=== PATIENT | female | born 1980 | race Caucasian/White ===

== ENCOUNTER 2019-06-04 11:15 | Emergency (ER) | payer SELFPAY ==
[2019-06-04 11:16] VITALS: BP 120/73; PULSE 80; RESP 16; TEMP 36.1; O2SAT 98; BMI 31.8
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
[2019-06-04 12:24] LABS: Absolute Lymphocyte Count 2.51 X10^3/uL (0.83-4.51); Absolute Neutrophil Count 6.2 X10^3/uL (2.0-7.7); Basophil# 0.03 X10^3/uL; Basophil% 0.3 % (0-1); Eosinophil# 0.07 X10^3/uL; Eosinophils% 0.7 % (0-5); Hematocrit 39.6 % (37-47); Hemoglobin 13.5 g/dL (12.0-15.0); Lymphocyte # 2.51 X10^3/ul (4.0); Lymphocyte % 26.7 % (19-41); Mean Corp Hgb Conc 34.1 g/dL (32-36); Mean Corpuscular Hgb 30.8 pg (27.0-32.0); Mean Corpuscular Volume 90.2 fL (81-99); Mean Platelet Vol. 10.2 fl (6.2-12.0); Monocyte# 0.58 X10^3/uL; Monocyte% 6.2 % (0-10); NRBC Flagged by Analyzer 0 % (0-5); Neutrophil # 6.16 X10^3/uL (2.7-7.7); Neutrophil % 65.6 % (47-70); Platelet Count 291 K/mm3 (150-450); RBC Distribution Width CV 13.4 % (11.6-14.6); RBC Distribution Width SD 44.8 fl (35.1-43.9); Red Blood Count 4.39 M/mm3 (4.2-5.4); White Blood Count 9.4 K/mm3 (4.4-11.0)
[2019-06-04] MEDS: 0.9% Normal Saline 1,000 ML 1000 ML IV (12:43)
[2019-06-04] MEDS: Ondansetron 4 MG/2 ML Vial IV (12:44)
[2019-06-04 12:45] LABS: ALB/GLOB Ratio 1.1 RATIO (0.9-2.4); AST(SGOT) 18 U/L (15-37); Alanine Aminotransfer ALT/SGPT 19 U/L (13-56); Albumin, Serum 3.3 g/dL (3.2-5.0); Alkaline Phosphatase 50 U/L (45-117); Anion Gap 5 (5-15); BUN 10 mg/dL (7-18); BUN/Creat Ratio 15.9 RATIO (10-20); Calcium,Total 7.9 mg/dL (8.5-10.1); Chloride 110 mmol/L (98-107); Creatinine, Serum 0.63 mg/dL (0.55-1.02); EST Glomerular Filtration Rate 113 mL/min (>60); Est Glom Filt Rate - Afr Amer 137 mL/min (>60); Estimated Creatinine Clearance 101.14 ml/min; Glucose 137 mg/dL (74-106); Lipase 120 U/L (73-393); Potassium 3.6 mmol/L (3.5-5.1); Protein, Total 6.3 g/dL (6.4-8.2); Sodium Level 139 mmol/L (136-145)
[2019-06-04] MEDS: Morphine 4 MG/ML Syringe IV (12:45)
--- NOTE | 2019-06-04 12:52 | ED.VIS.GEN ---
History of Present Illness Chief Complaint: Abd Pain Informant: Patient Onset: Weeks Narrative: Patient presents to the ED with reports of intermittent upper abdominal pain that been ongoing for several months. She states this is typically exacerbated with getting alcohol. She does report some associated nausea but no episodes of emesis. She describes as a severe aching sensation. She denies any emesis, diarrhea, constipation, urinary symptoms. She has no history of abdominal surgeries. Past Medical History - Allergies and Home Meds Allergies/Adverse Reactions: Allergies No Known Allergies Allergy (Verified 06/04/19 11:16) Primary Care Physician: Care Physician,No Primary [Primary Care Provider] - Smoking Status: Current every day smoker Review of Systems General: Denies: Chills, Fever, Sweats Eyes: Denies: Visual changes - bilaterally, Diplopia ENT: Denies: Rhinorrhea, Sore throat Cardiovascular: Denies: Chest pain, Palpitations Respiratory: Denies: Dyspnea, Cough, Dyspnea on exertion Gastrointestinal: Reports: Abdominal pain - Upper, Nausea. Denies: Vomiting, Diarrhea, Melena, Hematochezia Genitourinary: Denies: Dysuria, Hematuria, Frequency Musculoskeletal: Denies: Back pain, Extremity Pain Skin: Denies: Rash, Wounds Neurological: Denies: Headache, Weakness, Numbness Physical Exam Vital Signs/Narrative: Vital Signs Temp Pulse Resp BP Pulse Ox 06/04/19 11:16 97 F L 80 16 120/73 98 General: Well nourished, Well developed, No Acute Distress Head: Normocephalic, Atraumatic Eyes: Perrl, EOMI ENT: Moist mucous membranes, No rhinorrhea Neck: Supple, Nontender Cardiovascular: Regular rate, Regular rhythm, No murmurs Respiratory: No distress, CTA bilaterally, Chest nontender Abdomen: Soft, Nondistended, Normal bowel sounds, Tender - Epigastric. Negative for: Guarding, Rebound tenderness Back: Nontender, Normal Inspection Extremities: Nontender, No edema Skin: Normal color, No rash Neurological: Alert, Oriented x3, Cranial nerves II-XII grossly intact, Normal Strength, Normal Sensation Psychological: Normal affect, Normal Mood Diagnostic/Tx/Re-eval CBC, CMP, lipase are all unremarkable. - Medical Decision Making She presents to the ED with upper abdominal pain that has been intermittent for months. She is a chronic drinker. She reports some associated nausea. She appears well and nontoxic. She does have some upper abdominal tenderness to palpation with no guarding, rigidity, rebound tenderness. She was given IV fluids, morphine, and Zofran here for symptomatic relief. CBC, CMP, and lipase unremarkable. At this time, he is safe for the patient be discharged home. She will be provided with prescriptions for omeprazole and Carafate. She was instructed to follow-up with her PCP. She was educated on signs/symptoms to return to the ED. She is provided discharge instructions. She is agreeable to plan. Disposition: Home stable Impression: Gastritis ED Disposition - Plan for ED Patient: Disposition: Home or Assisted Living Diagnosis: Gastritis Instructions: GASTRITIS (Adult) Prescriptions: Sucralfate [Carafate] 1 gm PO 4X/DAY 3 Days #12 tab Prescription Printed Omeprazole [Prilosec] 20 mg PO BID #30 cap Prescription Printed Referrals: Care Physician,No Primary [Primary Care Provider] -
[2019-06-04 13:15] VITALS: BP 97/63; PULSE 80; RESP 16; O2SAT 96
== END 2019-06-04 14:07 | disposition home or self-care (01) ==
PROVIDERS: Emergency Provider Physician Assistant
DX: K29.70 Gastritis, unspecified, without bleeding (principal); F17.200 Nicotine dependence, unspecified, uncomplicated; Z79.899 Other long term (current) drug therapy
CPT/HCPCS: 80053; 83690; 85025; 96361; 96374; 96375; 99283; J7030; A4216; J2405

== ENCOUNTER 2019-06-06 13:18 | Emergency (ER) | payer SELFPAY ==
[2019-06-06 13:19] VITALS: BP 115/74; PULSE 58; RESP 16; TEMP 36.7; O2SAT 98; BMI 31.8
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
--- NOTE | 2019-06-06 15:23 | US_ITS ---
STUDY: ABDOMINAL ULTRASOUND - RIGHT UPPER QUADRANT REASON FOR VISIT: Female, 38 years old. Vertebral quadrant pain. TECHNIQUE: Ultrasound evaluation of the right upper quadrant was performed with real-time and static olvera-scale imaging. TECHNICAL QUALITY: Adequate. COMPARISON: None. FINDINGS: Liver: The liver measures 18.9 cm. There is normal echogenicity of the liver. The bile ducts are within normal limits. There is hepatic color flow. The direction of portal flow is hepatopetal. There is no demonstrated mass lesion. Gallbladder: Normal distended gallbladder. The gallbladder wall measures 4 mm. There is a positive sonographic Jose's sign. There is no pericholecystic fluid. There are multiple echogenic structures within the gallbladder, consistent with multiple gallstones. Common Bile Duct (C.B.D.): The common bile duct measures 5 mm. Pancreas: Normal size of the head, body and tail of the pancreas. There is normal echogenicity of the pancreas. There is no demonstrated pancreatic mass or cyst. Right Kidney: Normal size of the right kidney. The right kidney measures 12.0 cm. Normal renal cortex. The right cortex measures 1.2 cm. There is no demonstrated renal mass or cyst. There is no right hydronephrosis. US/Gallbladder IMPRESSION: Multiple gallstones. Gallbladder wall thickening. No biliary dilatation. Electronically Signed: William Mosqueda MD at 16:29 EDT , Service support ,
--- NOTE | 2019-06-06 15:23 | ED.DCSUM_ITS ---
- ER Visit Summary Date of Service: 06/06/19 Chief Complaint: Abdominal pain History of Present Illness: The patient is a 38 F who presents the emergency room with right upper quadrant pain. Patient states that this is been present for the past 1.5 months. She states that she got tired of it 2 days ago and came to the emergency department. She had a normal CBC CMP and lipase. It was felt at that time it was gastritis due to daily alcohol and ibuprofen use. She states that she has been taking her medications without relief. She states that food does not change her pain. She states laying on the right side makes it worse. She states that she has not had any fevers. She notes nausea without vo miting. Normal bowel movements. No urinary symptoms. Physical Examination: Afebrile vital signs are stable Gen: Well-nourished well-developed Head: Normocephalic atraumatic Eyes: Perrl EOMI ENT: TMs clear no rhinorrhea moist mucous membranes Neck: Supple no lymphadenopathy no JVD nontender CVS: Regular rate rhythm no murmurs normal S1-S2 Respiratory: No distress clear to auscultation bilaterally chest nontender Abdomen: Soft tender to palpation of the right upper quadrant with guarding nondistended normal bowel sounds no masses Back: Nontender Extremity: Nontender no edema Skin: Normal color no rash Neuro: alert orientated ?3 CN II-XII intact normal strength sensation reflexes gait cerebellar Psych: Normal affect normal mood Test Results: CBC CMP and lipase were negative. Gallbladder ultrasound shows cholelithiasis thickened gallbladder wall normal common bile duct and positive sonographic Jose sign without pericholecystic fluid. Emergency Department Course and Treatment: She received IV fluids morphine and Zofran. She is improved. I discussed the case with on-call surgeon Dr. Koch. Patient has an appointment tomorrow at 10:00 in his office to discuss cholecystectomy. Patient is comfortable with this plan. I will write for [place] and Zofran. Impression: 1. Cholelithiasis with biliary colic This note was generated with Evernote dictation software. It may contain incorrect words, spelling, and punctuation that were not noted in review of the chart prior to signing ED Disposition - Plan for ED Patient: Disposition: Home or Assisted Living Instructions: BILIARY COLIC with Gallstone (Confirmed) Prescriptions: Hydrocodone Bitart/Apap 5-325 [[place] 5MG-325MG] 1 tab PO Q6H PRN PRN 3 Days #12 tab PRN Reason: Pain Prescription Printed Ondansetron [Zofran Odt] 4 mg PO Q6H PRN PRN #10 tab PRN Reason: Nausea Prescription Printed Referrals: Natalio Koch MD [STAFF PHYSICIAN] - (You have an appointment at 1010 tomorrow. Please arrive early to fill out the necessary paperwork.)
[2019-06-06 15:30] VITALS: PULSE 68; RESP 16
[2019-06-06] MEDS: Ondansetron 4 MG/2 ML Vial IV (15:31)
[2019-06-06] MEDS: Morphine 4 MG/ML Syringe IV ×2 (15:31→17:22)
[2019-06-06 15:42] LABS: Absolute Lymphocyte Count 1.83 X10^3/uL (0.83-4.51); Absolute Neutrophil Count 6.5 X10^3/uL (2.0-7.7); Basophil# 0.03 X10^3/uL; Basophil% 0.3 % (0-1); Eosinophil# 0.07 X10^3/uL; Eosinophils% 0.8 % (0-5); Hematocrit 38.2 % (37-47); Hemoglobin 12.6 g/dL (12.0-15.0); Lymphocyte # 1.83 X10^3/ul (4.0); Lymphocyte % 20.5 % (19-41); Mean Corpuscular Hgb 30.1 pg (27.0-32.0); Mean Corpuscular Volume 91.2 fL (81-99); Mean Platelet Vol. 10.1 fl (6.2-12.0); Monocyte# 0.48 X10^3/uL; Monocyte% 5.4 % (0-10); NRBC Flagged by Analyzer 0 % (0-5); Neutrophil # 6.46 X10^3/uL (2.7-7.7); Neutrophil % 72.4 % (47-70); Platelet Count 280 K/mm3 (150-450); RBC Distribution Width CV 13.9 % (11.6-14.6); RBC Distribution Width SD 46.3 fl (35.1-43.9); Red Blood Count 4.19 M/mm3 (4.2-5.4); White Blood Count 8.9 K/mm3 (4.4-11.0)
[2019-06-06 15:55] LABS: AST(SGOT) 26 U/L (15-37); Alanine Aminotransfer ALT/SGPT 21 U/L (13-56); Albumin, Serum 3.2 g/dL (3.2-5.0); Alkaline Phosphatase 48 U/L (45-117); Anion Gap 3 (5-15); BUN 13 mg/dL (7-18); BUN/Creat Ratio 19.5 RATIO (10-20); Bilirubin, Direct 0.06 mg/dL (0.00-0.30); Calcium,Total 8.8 mg/dL (8.5-10.1); Chloride 105 mmol/L (98-107); Creatinine, Serum 0.67 mg/dL (0.55-1.02); EST Glomerular Filtration Rate 105 mL/min (>60); Est Glom Filt Rate - Afr Amer 128 mL/min (>60); Globulin 3.2 g/dL (2.2-4.2); Glucose 103 mg/dL (74-106); Lipase 123 U/L (73-393); Potassium 4.4 mmol/L (3.5-5.1); Protein, Total 6.4 g/dL (6.4-8.2); Sodium Level 138 mmol/L (136-145)
[2019-06-06 15:59] LABS: Internal QC Validated? YES +Cl - CLEAR BKGD; Pregnancy, Serum, hCG Quali. NEGATIVE Negative
[2019-06-06 17:23] VITALS: BP 116/73; PULSE 68; RESP 16
== END 2019-06-06 17:25 | disposition home or self-care (01) ==
PROVIDERS: Emergency Provider Emergency Medicine
DX: K80.70 Calculus of gallbladder and bile duct without cholecystitis without obstruction (principal); F32.9 Major depressive disorder, single episode, unspecified; F41.9 Anxiety disorder, unspecified; Z72.0 Tobacco use; Z79.899 Other long term (current) drug therapy
CPT/HCPCS: 76705; 80048; 80076; 83690; 84703; 85025; 96374; 96375; 96376; 99283; A4216; J2405

== ENCOUNTER 2019-06-10 13:04 | Day surgery (SDC) | payer SELFPAY ==
[2019-06-07 10:17] VITALS: BMI 31.8
[2019-06-08 11:28] VITALS: BMI 31.8
[2019-06-10] VITALS (7 sets, daily range): BP systolic 103–126; BP diastolic 69–94; PULSE 49–65; RESP 16; TEMP 36.2–36.8; O2SAT 94–100; BMI 33.1
[2019-06-10 13:35] LABS: Hematocrit 36.2 % (37-47); Hemoglobin 11.8 g/dL (12.0-15.0); Mean Corp Hgb Conc 32.6 g/dL (32-36); Mean Corpuscular Hgb 30.4 pg (27.0-32.0); Mean Corpuscular Volume 93.3 fL (81-99); Mean Platelet Vol. 9.9 fl (6.2-12.0); Platelet Count 250 K/mm3 (150-450); RBC Distribution Width CV 14.1 % (11.6-14.6); RBC Distribution Width SD 47.9 fl (35.1-43.9); Red Blood Count 3.88 M/mm3 (4.2-5.4); White Blood Count 5.4 K/mm3 (4.4-11.0)
[2019-06-10 13:48] LABS: International Normalized Ratio 1.1; Prothrombin Time (Protime)PT. 13.9 SECONDS (11.7-14.9)
[2019-06-10 13:49] LABS: Partial Thromboplast Time 28.1 Seconds (24.1-36.2)
[2019-06-10 14:00] LABS: AST(SGOT) 21 U/L (15-37); Alanine Aminotransfer ALT/SGPT 20 U/L (13-56); Albumin, Serum 3.1 g/dL (3.2-5.0); Alkaline Phosphatase 55 U/L (45-117); Anion Gap 3 (5-15); BUN 13 mg/dL (7-18); BUN/Creat Ratio 20.4 RATIO (10-20); Bilirubin, Direct < 0.05 mg/dL (0.00-0.30); Calcium,Total 7.9 mg/dL (8.5-10.1); Chloride 113 mmol/L (98-107); Creatinine, Serum 0.64 mg/dL (0.55-1.02); EST Glomerular Filtration Rate 112 mL/min (>60); Est Glom Filt Rate - Afr Amer 135 mL/min (>60); Estimated Creatinine Clearance 99.56 ml/min; Globulin 2.9 g/dL (2.2-4.2); Glucose 88 mg/dL (74-106); Potassium 3.8 mmol/L (3.5-5.1); Sodium Level 142 mmol/L (136-145)
[2019-06-10] MEDS: Cefazolin 2 GM in 0.9% Normal Saline 100 ML IV (15:18)
--- NOTE | 2019-06-10 15:25 | GALL_PTH ---
PATIENT: KIN FOX LOC: [facility] [place] U#:[id number] AGE/SX: 38/F ROOM: RE06/10/[address]: Dr. Natalio Koch MD : 1980 BED: DIS: 06/10/2019 SPEC #: [id number] RECD: 06/10/19 16:49 STATUS: QI JANNETH #: [id number] HORTENCIA: 06/10/19 15:[address]: Natalio Koch DEPT: SURGICAL PATHOLOGY RECD BY: Denis David ENTERED: 06/13/19 09:42 SP TYPE: TRINI LIZARRAGA DR: No Primary Care Phys Tissues: Gallbladder, NOS Procedures: Surgery Specimen Level III HEADER OPERATION: Laparoscopic cholecystectomy PRE-OP DIAGNOSIS: Right upper quadrant abdominal pain TISSUE SUBMITTED: Gallbladder MICROSCOPIC DIAGNOSIS Gallbladder, cholecystectomy: Chronic cholecystitis and cholelithiasis. AM:dina 06/15/19 MICROSCOPIC DESCRIPTION Slides are reviewed. GROSS DESCRIPTION Received is one container labeled with the patient's name and designated gallbladder. The specimen consists of a gallbladder measuring 7 cm in length and up to 3 cm in diameter. The external surface is pink-luna, smooth and glistening for the most part. Focally it is granular, hemorrhagic and contains cautery artifact. The gallbladder contains green-yellow mucoid bile and multiple orange-brown mulberry stones measuring in aggregate 4 x 4 x 1.5 cm and 0.6 to 1.2 cm in greatest dimension. The mucosa is bile-stained and without any mass lesions. The gallbladder wall measures up to 0.3 cm in thickness. Private Duty Nurse sections from the gallbladder and the cystic duct are submitted in one cassette. / RHETT:sp 06/13/19 TC: 3 CPT: 62568
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
[2019-06-10] MEDS: Bupivacaine Mpf 0.5% 30 ML VIAL (15:50)
--- NOTE | 2019-06-10 15:50 | PCM.OPRPT ---
Problem List (1) Cholelithiasis and acute cholecystitis without obstruction Status: Acute (2) Right upper quadrant abdominal pain Status: Acute Report of Operation Date of Procedure: 06/10/19 Pre-Operative Diagnosis: Acute cholecystitis with cholelithiasis Post-Operative Diagnosis: Same Surgery/Procedure Performed:: Laparoscopic cholecystectomy Type of Anesthesia:: General Anesthesiologist: Vince Boyer Specimen's removed: Gallbladder Estimated Blood Loss (mL): < 25 cc Fluids Replaced: 1200 cc LR Description of Procedure: Patient was brought into the operating room. Placed in the supine position. Under excellent general endotracheal ovation abdomen was sterilely prepped draped usual fashion. Local was injected infraumbilically. Dissection was carried down to the fascia. The fascia was grasped with Taryn's. Varies needle was placed inside the abdomen. The abdomen was insufflated to 15 torr. A 10/12 trocar was placed without difficulty. Patient was placed in the head up and rotated to the left position. Subxiphoid #5 trocar was placed, inferior to this another #5 trocar was placed, laterally a #5 trocar was placed. All of these under direct visualization without injury to underlying structures. Gallbladder itself was aspirated was noted to be hydrops. Grabbed the fundus of the gallbladder and retracted in cephalad direction. Grabbed the infundibulum and retracted it laterally. I dissected out the cystic duct. He would like clips were placed proximally and distally and the duct was ligated. Identified the cystic artery. Hemoclips were placed proximally distally and the artery was then ligated. Deliver the gallbladder from gallbladder bed with use of electrocautery. I had good hemostasis. Placed a specimen in a specimen bag and delivered through the umbilical port without difficulty. Irrigated the right upper quadrant good hemostasis was noted. I removed all the trochars good hemostasis was noted. To close the fascia the umbilical port with a figure stitch of 0 Vicryl. Skin incisions were closed with some particular stitches of 4-0 Monocryl. Steri-Strips were applied sterile dressings were applied and the patient tolerated the procedure well. - Admit VTE Documentation VTE Present on Admission: No VTE Mechan Device Prophylaxis: SCD's VTE Pharm Prophylaxis ordered?: No Reason prophylaxis not ordered:: Treatment Not Indicated
--- NOTE | 2019-06-10 15:54 | DCINST_ITS ---
Discharge Diet: Light diet - advance as tolerated Discharge Activity: May Not Drive - for 2-3 days or while taking narcotic pain medications., - - Do not drive, work heavy equipment or sign legal documents for 24 hours. May shower in (days): 1 - with the bandage in place. Additional Activity Instructions:: Pain medication may cause nausea. You should typically eat light foods as you take your pain medications. Pain medication may also cause constipation. If this is a problem for you, please discuss with your doctor. Call your doctor if your incision/area has: Continuous Slow Oozing, Sudden Increased Bleeding, Increased Pain/ Swelling, Increased Redness, Foul Smelling Discharge Call your doctor if you observe: Fever of 101 or Higher Suture Line Care: Avoid Pulling/Pushing, Avoid Pinching/Bending Additional Dressing/Incision Instructions:: Leave operative bandaids on for 2 days. When you remove dressing, leave Steri-Strips on until your follow-up appointment, or until the Steri-Strips fall off on their own. Allergies/Adverse Reactions: Allergies No Known Allergies Allergy (Verified 06/10/19 13:32) Medications to take at Discharge Fluoxetine [Prozac] 60 mg PO DAILY 01/21/14 Hydrocodone Bitart/Apap 5-325 [[place] 5MG-325MG] 1 tab PO Q6H PRN PRN 3 Days #12 tab 06/06/19 Oxycodone HCl/Acetaminophen [Percocet 5/325] 1 - 2 tab PO Q4H PRN PRN 6 Days #30 tab 06/10/19 The following prescriptions were given: Oxycodone HCl/Acetaminophen [Percocet 5/325] 1 - 2 tab PO Q4H PRN PRN 6 Days #30 tab PRN Reason: Pain Prescription Printed Primary Care Physician: Care Physician,No Primary [Primary Care Provider] - Test Results: Test results from this visit will be discussed in further detail at your follow- up appointment, if applicable. Please Follow Up With: Natalio Koch MD - Please call [phone] to schedule an appointment. When: 7 days after your surgery.
[2019-06-10] MEDS: oxyCODONE 5 MG Tablet PO (17:27)
== END 2019-06-10 18:22 | disposition home or self-care (01) ==
LOC: SDC 13:07 → AC 13:09
PROVIDERS: Anesthesiology; Referring Provider Surgery; Visit Provider Surgery
DX: K80.12 Calculus of gallbladder with acute and chronic cholecystitis without obstruction (principal); F32.9 Major depressive disorder, single episode, unspecified; F41.9 Anxiety disorder, unspecified; F17.200 Nicotine dependence, unspecified, uncomplicated; Z79.899 Other long term (current) drug therapy; Z98.51 Tubal ligation status
CPT/HCPCS: 47562; 36415; 80048; 80076; 85027; 85610; 85730; 88304; J7120

== ENCOUNTER 2020-05-11 22:04 | Emergency (ER) | payer MEDICAID, SELFPAY ==
[2019-06-10 13:33] VITALS: BMI 33.1
[2020-05-11 22:05] VITALS: BP 161/99; PULSE 74; RESP 18; TEMP 36.7; O2SAT 100; BMI 44.2
[2020-05-11 22:42] LABS: Absolute Lymphocyte Count 2.06 X10^3/uL (0.83-4.51); Absolute Neutrophil Count 3.4 X10^3/uL (2.0-7.7); Basophil# 0.04 X10^3/uL; Basophil% 0.7 % (0-1); Eosinophils% 1.6 % (0-5); Hematocrit 39.9 % (37-47); Hemoglobin 12.7 g/dL (12.0-15.0); Lymphocyte # 2.06 X10^3/ul (4.0); Lymphocyte % 33.9 % (19-41); Mean Corp Hgb Conc 31.8 g/dL (32-36); Mean Corpuscular Hgb 29.5 pg (27.0-32.0); Mean Corpuscular Volume 92.6 fL (81-99); Mean Platelet Vol. 9.2 fl (6.2-12.0); Monocyte# 0.39 X10^3/uL; Monocyte% 6.4 % (0-10); NRBC Flagged by Analyzer 0 % (0-5); Neutrophil # 3.43 X10^3/uL (2.7-7.7); Neutrophil % 56.6 % (47-70); Platelet Count 285 K/mm3 (150-450); RBC Distribution Width CV 13.9 % (11.6-14.6); RBC Distribution Width SD 46.7 fl (35.1-43.9); Red Blood Count 4.31 M/mm3 (4.2-5.4); White Blood Count 6.1 K/mm3 (4.4-11.0)
[2020-05-11 22:54] LABS: Anion Gap 5 (5-15); BUN 15 mg/dL (7-18); BUN/Creat Ratio 16.8 RATIO (10-20); Calcium,Total 8.1 mg/dL (8.5-10.1); Chloride 106 mmol/L (98-107); Creatinine, Serum 0.89 mg/dL (0.55-1.02); EST Glomerular Filtration Rate 75 mL/min (>60); Est Glom Filt Rate - Afr Amer 91 mL/min (>60); Glucose 82 mg/dL (74-106); Potassium 3.4 mmol/L (3.5-5.1); Sodium Level 139 mmol/L (136-145)
[2020-05-11 23:15] LABS: Mucous, Urine 0 SEEN /hpf (<or=2+)
[2020-05-11 23:20] LABS: Color, Urine Yellow (Yellow); Glucose, Dipstick Normal (Normal); Ketone-Dipstick Negative (Negative); Leukocyte Esterase-Dipstick 500 /ul (Negative); Nitrite-Dipstick Negative (Negative); Occult Blood-Urine 50 /ul (Negative); Protein-Dipstick 30 mg/dl (Negative); Specific Gravity, Urine 1.015 (1.002-1.030); Urine Bilirubin Dipstick Negative (Negative); Urine Clarity Sl. Cloudy (Clear); Urine Urobilinogen Normal (Normal); Urine pH 6.5 (5.0 - 8.0)
[2020-05-11 23:25] LABS: Red Blood Cells-Urine 5-10 SEEN /hpf (0-5); Squamous Epithelial Cells - UA 5-10 SEEN /hpf (5-10)
[2020-05-11 23:26] LABS: Bacteria RARE /hpf (None Seen); Internal QC Validated? YES +Cl - CLEAR BKGD; Pregnancy, Urine Negative Negative; White Blood Cells 25-50 SEEN /hpf (0-5)
--- NOTE | 2020-05-11 23:36 | ED.DCSUM_ITS ---
- ER Visit Summary Date of Service: 05/11/20 Chief Complaint: Bilateral leg swelling, urinary issues History of Present Illness: The patient is a 39 F who presents with leg swelling. She states that yesterday she noted that her lower legs and feet were both swollen. They were symmetric. She has had no previous issues with swelling. She stands on her feet all day and nothing has changed as far as her activity. She denies any redness or fevers. She has still has urinary frequency with cloudiness. She does not feel short of breath. No chest pain. No dyspnea on exertion. No orthopnea. She has no history of DVT or PE in the past. Physical Examination: Vital signs reviewed. HEENT exam unremarkable. Heart is regular rate and rhythm without murmurs. Lungs are clear to auscultation. Abdomen is soft and nontender. Extremities reveal symmetric nonpitting edema of the lower extremities. There is no redness. No palpable cords. Her peripheral pulses are equal. Skin exam normal. Neurologic exam normal. Test Results: Laboratory studies show a potassium of 3.4. Urinalysis is consistent with infection. hCG negative. Emergency Department Course and Treatment: The patient's kidney function is normal. She has no proteinuria. I will schedule her to have an outpatient ultrasound of the bilateral lower extremities. I recommended that she elevate her feet as much as possible. She was also recommended to use compression stockings. I will treat her UTI with Bactrim. She is going to follow-up with her primary care physician. Treatment Plan: [] Disposition: Discharge Impression: UTI, peripheral edema This note was generated with [employer] dictation software. It may contain incorrect words, spelling, and punctuation that were not noted in review of the chart prior to signing ED Disposition - Plan for ED Patient: Disposition: Home or Assisted Living Instructions: ED Peripheral Edema, Bilateral Referrals: Care Physician,No Primary [Primary Care Provider] -
[2020-05-11] MEDS: Smz/Tmp Ds Tablet 1 TABLET PO (23:52)
[2020-05-11 23:53] VITALS: BP 122/74; PULSE 73; RESP 18; O2SAT 99
--- NOTE | 2020-05-12 20:10 | ED.RN ---
PT CALLED IN AND STATED HER PRESCRIPTION FOR BACTRIM WRITTEN BY DR. IGNACIO WAS NOT AT THE PHARMACY WHEN SHE WENT TO PICK IT UP. THIS RN SPOKE WITH DR. VAZQUEZ. HE WAS AGREEABLE TO SENDING THE PRESCRIPTION TO [facility] PATIENT REQUESTED.
== END 2020-05-12 | disposition home or self-care (01) ==
PROVIDERS: Emergency Provider Emergency Medicine
DX: N39.0 Urinary tract infection, site not specified (principal); R60.0 Localized edema; F32.9 Major depressive disorder, single episode, unspecified; Z72.0 Tobacco use
CPT/HCPCS: 36415; 80048; 81001; 81025; 85025; 99283